=== PATIENT | female | born 1985 | race Hispanic/Latino ===

== ENCOUNTER 2018-06-10 14:57 | Emergency (ER) | payer SELFPAY ==
[~2018-06-10] VITALS: Ht 160 cm; Wt 58.2 kg
[~2018-06-10 14:57] MED LIST: AMOXICILLIN875 MG PO; MACRODANTIN100 MG OR; NO; NO HOME MEDS; PRENATABS OR
[2018-06-10 15:21] VITALS: BP 142/87
== END 2018-06-10 15:34 | disposition home or self-care (01) | DRG 301 ==
LOC: ED 14:57
PROC: 0HQKXZZ Repair Right Lower Leg Skin, External Approach (ICD-10-PCS; principal; 2018-06-10)
DX: I83.891 Varicose veins of right lower extremity with other complications (principal)

== ENCOUNTER 2019-06-22 08:56 | Emergency (ER) | payer SELFPAY ==
[~2019-06-22] VITALS: Ht 160 cm; Wt 59.0 kg
[2019-06-22 09:27] LABS: HEMOGLOBIN 11.6 g/dl (12.0-16.0); IMMATURE GRANULOCYTES 0.2 % (0.0-5.0); MEAN CELL VOLUME 81.6 fL CALC (80.0-100.0); MEAN CORPUSCULAR HGB CONC 33.1 g/L CALC (32.0-36.0); NEUT# 6.13 thou/uL (2.00-7.15); RED BLOOD COUNT 4.29 mill/uL (4.20-5.60); RED CELL DISTRI WIDTH 13.5 % (11.5-15.5)
[2019-06-22 09:44] LABS: ANION GAP 12 (6-22 (CALC)); BUN 9 mg/dL (7-17); BUN/CREATININE RATIO 29 (12-20 (CALC)); CARBON DIOXIDE 23 mmol/l (22-30); CHLORIDE 110 mmol/l (95-108); CREATININE 0.3 mg/dL (0.5-1.0); GFR > 60 ML/MIN (>=60 (CALC)); GFR FOR AFR.AMER. > 60 ML/MIN (>=60 (CALC)); POTASSIUM 3.1 mmol/l (3.5-5.1); SODIUM 142 mmol/l (137-146)
[2019-06-22] MEDS ORDERED: LEVOTHYROXIN50 MCG PO (10:23)
[2019-06-22] MEDS ORDERED: K-TAB20 MEQ PO (11:16)
[2019-06-22 11:39] VITALS: BP 101/65
== END 2019-06-22 11:39 | disposition home or self-care (01) | DRG 313 ==
LOC: ED 08:56
PROVIDERS: Family Medicine
DX: R07.9 Chest pain, unspecified (principal)

== ENCOUNTER 2020-01-11 | Observation (INO) | payer SELFPAY ==
[2020-01-11] VITALS (10 sets, daily range): BP systolic 103–135; BP diastolic 61–76
[~2020-01-11] MED LIST changes: +K-TAB20 MEQ PO; +LEVOTHYROXIN50 MCG PO
--- NOTE | 2020-01-11 04:30 | NUR ---
PT. WITH C/O ABD. PAIN STARTING YESTERDAY. ABD. DISTENDED BUT SOFT WITH + BOWEL SOUNDS. PT. STATES SHE HAD A NORMAL BM YESTERDAY.
--- NOTE | 2020-01-11 05:10 | NUR ---
IV PAIN MED GIVEN PER MD ORDER.
[2020-01-11] MEDS ORDERED: METHIMAZOLE10 MG PO (05:17)
[2020-01-11] MEDS ORDERED: AMOXICILLIN500 MG PO (05:18)
[2020-01-11 05:19] LABS: HEMATOCRIT 36.6 % (37.0-47.0); HEMOGLOBIN 11.8 g/dl (12.0-16.0); IMMATURE GRANULOCYTES 0.3 % (0.0-5.0); MEAN CELL VOLUME 80.3 fL CALC (80.0-100.0); MEAN CORPUSCULAR HGB 25.9 pG CALC (26.0-32.0); MEAN CORPUSCULAR HGB CONC 32.2 g/dL CAL (32.0-36.0); NEUT# 10.18 thou/uL (2.00-7.15); RED BLOOD COUNT 4.56 mill/uL (4.20-5.60); RED CELL DISTRI WIDTH 13.9 % (11.5-15.5)
[2020-01-11 05:20] LABS: URINE BILIRUBIN - DIPSTICK NEGATIVE (NEGATIVE); URINE BLOOD DIPSTICK TRACE-LYSED (NEGATIVE); URINE COLOR YELLOW; URINE GLUCOSE - DIPSTICK NEGATIVE (NEGATIVE); URINE KETONE NEGATIVE (NEGATIVE); URINE LEUK ESTERASE NEGATIVE (NEGATIVE); URINE NITRITE - DIPSTICK NEGATIVE (Negative); URINE PH 5.5 (4.5-8.0); URINE PROTEIN - DIPSTICK NEGATIVE (NEG-TRACE); URINE SPECIFIC GRAVITY >=1.030; URINE UROBILINOGEN - DIPSTICK 0.2 E.U./dL (0.2)
--- NOTE | 2020-01-11 05:30 | NUR ---
PT. STATES HER ABD. PAIN IS NOW DECREASED TO A 7 KATHIA SCALE OF 1-10.
[2020-01-11 05:35] LABS: ALBUMIN 4.3 g/dL (3.2-5.0); ALKALINE PHOSPHATASE 108 u/l (38-126); AMYLASE 37 u/l (30-110); ANION GAP 14 (6-22 (CALC)); BILIRUBIN, TOTAL 0.8 mg/dL (0.0-1.4); BUN 11 mg/dL (7-17); BUN/CREATININE RATIO 31 (12-20 (CALC)); CARBON DIOXIDE 22 mmol/l (22-30); CHLORIDE 104 mmol/l (95-108); CREATININE 0.4 mg/dL (0.5-1.0); GFR > 60 ML/MIN (>=60 (CALC)); GFR FOR AFR.AMER. > 60 ML/MIN (>=60 (CALC)); LIPASE 48 u/l (23-300); POTASSIUM 3.5 mmol/l (3.5-5.1); SGOT/AST 21 u/l (14-36); SODIUM 136 mmol/l (137-146); TOTAL PROTEIN 7.8 g/dL (6.3-8.2)
--- NOTE | 2020-01-11 05:42 | NUR ---
PT. C/O RETURNING ABD. PAIN MD AWARE.
--- NOTE | 2020-01-11 06:54 | NUR ---
PT. STATES HER ABD. PAIN IS NOW REDUCED TO A 4 ON A SCALE OF 1-10.
--- NOTE | 2020-01-11 06:59 | NUR ---
REPORT TO JAMES ZAPATA.
--- NOTE | 2020-01-11 07:09 | NUR ---
REPORT FROM BENNY SUN; PT RESTING ON STRETCHER WITH EYES CLOSED; EASILY AROUSABLE; PT DENIES ANY PAIN AT THIS TIME; MONITORING DEVICES IN PLACE; VSS; WILL CONTNIUE TO MONITOR
--- NOTE | 2020-01-11 08:05 | NUR ---
KATHE, RN AT BEDSIDE REPORT GIVEN; PT OUT OF ED IN STABLE CONDITION AT THIS TIME
--- NOTE | 2020-01-11 08:47 | NUR ---
REPORT CALLED TO BENNY LEGGETT
--- NOTE | 2020-01-11 11:43 | NUR ---
PATIENT ARRIVED TO FLOOR FRON OR VIA STRETCHER, PATIENT WAS ASSISTED TO RESTROOM, PATIENT VOIDED, PATIENT DROWSY NO C/O PAIN, NO S/S RESP DISTRESS PATIENT ON ROOM AIR, S/P LAP [place] 4 SITES ARE DRY, CLEAN INTACT, LAST BOWEL MOVEMENT 01/10/20, ORIENT PATIENT TO ROOM, STAFF, AND PLACE OF CARE, WILL CONTINUE TO MONITOR
--- NOTE | 2020-01-11 16:25 | NUR ---
PATIENT A/O X4, NO S/S RESP DISTRESS, PATIENT ON ROOM AIR, PATIENT PAIN LEVEL DECREASE TO 2/10 IN ABDOMEN AFTER PAIN MED GIVEN, PATIENT TO AMBULATE TO RESTROOM WITHOUT COMPLICATION, WILL CONTINUE TO MONITOR PATIENT
--- NOTE | 2020-01-11 20:33 | NUR ---
PT RESTING IN BED, NO SIGNS OF DISTRESS NOTED, RESP EVEN AND UNLABORED. PT ALERT AND ORIENTED X3, SWEDISH SPEAKING ONLY,STUDENT LOAN COUNSELOR SPEAKS SWEDISH. DISCUSSED POC, SCD'S IN PLACE. ABD INCISIONS X4 WITH DERMABOND CDI. ASSESSMENT COMPLETED, PT MEDICATED FOR PAIN, CALL LIGHT IN REACH,CONTINUE TO MONITOR.
--- NOTE | 2020-01-11 22:12 | NUR ---
PT RESTING IN BED, ASSISTED PT TO BATHROOM, RETURNED AND MEDICATED WITH TORADOL, PAIN 04/04. CALL LIGHT IN REACH,CONTINUE TO MONITOR.
--- NOTE | 2020-01-12 | NUR ---
PT RESTING IN BED, NO SIGNS OF DISTRESS NOTED, RESP EVEN AND UNLABORED. PT VOICES NO NEEDS OR COMPLAINTS AT THIS TIME, CALL LIGHT IN REACH,CONTINUE TO MONITOR.
--- NOTE | 2020-01-12 03:21 | NUR ---
ASSISTED PT TO BATHROOM, PT RETURNED TO BED, MEDICATED WITH TORADOL. CALL LIGHT IN REACH,CONTINUE TO MONITOR.
[2020-01-12 03:22] VITALS: BP 93/56
--- NOTE | 2020-01-12 06:00 | NUR ---
PT MEDICATED FOR PAIN 04/04, CALL LIGHT IN REACH,CONTINUE TO MONITOR.
[2020-01-12 07:55] VITALS: BP 98/56
[2020-01-12 10:56] VITALS: BP 91/52
[2020-01-12] MEDS ORDERED: PERCOCET 5/325M1 TAB PO (11:38)
--- NOTE | 2020-01-12 14:30 | NUR ---
IV site discontinued, cath intact. No edema , no redness, voices no discomfort.
--- NOTE | 2020-01-12 14:30 | NUR ---
PATIENT A/OX4, NO C/O PAIN, NO S/S RESP DISTRESS, PATIENT ON ROOM AIR, PATIENT DISCHARGED TO HOME,FRENCH SPEAKING NURSE ASSISTED ASSIGN NURSE WITH EDUCATING PATIENT ABOUT DISCHARGE INSTRUCTIONS, PATIENT UNDERSTOOD TEACHING, REMOVE IV, PATIENT AMBULATED OFF FLOOR ACCOMPANIED BY ASSIGN NURSE
== END 2020-01-12 14:30 | disposition home or self-care (01) | DRG 419 ==
PROVIDERS: ADMIT Surgery
PROC: 0FT44ZZ Resection of Gallbladder, Percutaneous Endoscopic Approach (ICD-10-PCS; principal; 2020-01-11)
DX: K80.00 Calculus of gallbladder with acute cholecystitis without obstruction (principal); K42.9 Umbilical hernia without obstruction or gangrene
CPT/HCPCS: J0131; J1100; Q9967

== ENCOUNTER 2020-12-03 12:13 | Emergency (ER) | payer SELFPAY ==
[~2020-12-03] VITALS: Ht 160 cm; Wt 62.0 kg
[~2020-12-03 12:13] MED LIST changes: +AMOXICILLIN500 MG PO; +METHIMAZOLE10 MG PO; +PERCOCET 5/325M1 TAB PO
[2020-12-03 13:11] LABS: HEMATOCRIT 34.6 % (37.0-47.0); HEMOGLOBIN 10.9 g/dl (12.0-16.0); IMMATURE GRANULOCYTES 0.3 % (0.0-5.0); MEAN CELL VOLUME 80.3 fL CALC (80.0-100.0); MEAN CORPUSCULAR HGB 25.3 pG CALC (26.0-32.0); MEAN CORPUSCULAR HGB CONC 31.5 g/dL CAL (32.0-36.0); NEUT# 6.62 thou/uL (2.00-7.15); RED BLOOD COUNT 4.31 mill/uL (4.20-5.60); RED CELL DISTRI WIDTH 15.5 % (11.5-15.5)
[2020-12-03 13:27] LABS: ALBUMIN 4.3 g/dL (3.2-5.0); ALKALINE PHOSPHATASE 98 u/l (38-126); ANION GAP 13 (6-22 (CALC)); BILIRUBIN, TOTAL 0.6 mg/dL (0.0-1.4); BUN 11 mg/dL (7-17); BUN/CREATININE RATIO 19 (12-20 (CALC)); CARBON DIOXIDE 22 mmol/l (22-30); CHLORIDE 107 mmol/l (95-108); CREATININE 0.6 mg/dL (0.5-1.0); GFR > 60 ML/MIN (>=60 (CALC)); GFR FOR AFR.AMER. > 60 ML/MIN (>=60 (CALC)); LIPASE 88 u/l (23-300); POTASSIUM 3.5 mmol/l (3.5-5.1); SGOT/AST 23 u/l (14-36); SODIUM 139 mmol/l (137-146); TOTAL PROTEIN 7.9 g/dL (6.3-8.2)
[2020-12-03 14:45] LABS: URINE BILIRUBIN - DIPSTICK NEGATIVE (NEGATIVE); URINE BLOOD DIPSTICK TRACE-INTACT (NEGATIVE); URINE COLOR YELLOW; URINE GLUCOSE - DIPSTICK NEGATIVE (NEGATIVE); URINE KETONE NEGATIVE (NEGATIVE); URINE LEUK ESTERASE NEGATIVE (NEGATIVE); URINE NITRITE - DIPSTICK NEGATIVE (Negative); URINE PH 5.5 (4.5-8.0); URINE PROTEIN - DIPSTICK NEGATIVE (NEG-TRACE); URINE SPECIFIC GRAVITY >=1.030; URINE UROBILINOGEN - DIPSTICK 0.2 E.U./dL (0.2)
[2020-12-03] MEDS ORDERED: CYCLOBENZAPR5 MG PO (14:51)
[2020-12-03 15:30] VITALS: BP 112/67
== END 2020-12-03 16:19 | disposition home or self-care (01) | DRG 552 ==
LOC: ED 12:13
PROVIDERS: Family Medicine
DX: M54.5 Low back pain (principal); R10.30 Lower abdominal pain, unspecified

== ENCOUNTER 2022-12-19 18:14 | Emergency (ER) | payer MEDICAID ==
[2022-12-19] VITALS (7 sets, daily range): BP systolic 97–137; BP diastolic 56–92
[~2022-12-19] VITALS: Ht 160 cm; Wt 73.2 kg
[~2022-12-19 18:14] MED LIST changes: +CYCLOBENZAPR5 MG PO
[2022-12-19] MEDS ORDERED: TAM75CAP PO (20:21)
[2022-12-19] MEDS ORDERED: MEDDOSEPAK PO (20:21)
== END 2022-12-19 20:49 | disposition home or self-care (01) ==
LOC: ED 18:14
DX: J10.1 Influenza due to other identified influenza virus with other respiratory manifestations (principal); Z20.822 Contact with and (suspected) exposure to COVID-19

== ENCOUNTER 2024-08-05 12:22 | Emergency (ER) | payer OTHER ==
[~2024-08-05] VITALS: Ht 160 cm; Wt 81.0 kg
[2024-08-05] VITALS (7 sets, daily range): BP systolic 127–148; BP diastolic 70–80
[~2024-08-05 12:22] MED LIST changes: +MEDDOSEPAK PO; +TAM75CAP PO
[2024-08-05] MEDS ORDERED: ONDANSETRON HCl 4 MG/2 ML SDV IV STA (13:27)
[2024-08-05] MEDS ORDERED: KETOROLAC TROMETHAMINE 30 MG/ML SDV IV STA (13:27)
[2024-08-05] MEDS ORDERED: SODIUM CHLORIDE 0.9% 1,000 ML IV STA (13:27)
[2024-08-05 14:05] LABS: URINE BILIRUBIN - DIPSTICK Negative (NEGATIVE); URINE BLOOD DIPSTICK Negative (NEGATIVE); URINE GLUCOSE - DIPSTICK Negative (NEGATIVE); URINE KETONE Negative (NEGATIVE); URINE LEUK ESTERASE Negative (NEGATIVE); URINE NITRITE - DIPSTICK Negative (Negative); URINE PROTEIN - DIPSTICK Negative (NEG-TRACE); URINE SPECIFIC GRAVITY <=1.005; URINE UROBILINOGEN - DIPSTICK 0.2 E.U./dL (0.2)
[2024-08-05 14:05] LABS: BASO% 0.5 % (0-3); HEMATOCRIT 35.2 % (37.0-47.0); HEMOGLOBIN 11.3 g/dl (12.0-16.0); IMMATURE GRANULOCYTES 0.3 % (0.0-5.0); LYMPH% 21.3 % (15-41); MEAN CORPUSCULAR HGB 27.3 pG CALC (26.0-32.0); MEAN CORPUSCULAR HGB CONC 32.1 g/dL CAL (32.0-36.0); MONO% 4.7 % (2-13); NEUT# 8.17 thou/uL (2.00-7.15); NEUT% 71.2 % (42-76); RED BLOOD COUNT 4.14 mill/uL (4.20-5.60); RED CELL DISTRI WIDTH 14.4 % (11.5-15.5)
[2024-08-05 14:06] LABS: URINE COLOR Yellow
[2024-08-05 14:24] LABS: ALBUMIN 4.4 g/dL (3.2-5.0); ALKALINE PHOSPHATASE 82 u/l (38-126); ANION GAP 10 (6-22 (CALC)); BILIRUBIN, TOTAL 0.5 mg/dL (0.02-1.3); BUN 8 mg/dL (7-17); BUN/CREATININE RATIO 16 (12-20 (CALC)); CARBON DIOXIDE 24 mmol/l (22-30); CHLORIDE 111 mmol/l (95-108); CREATININE 0.5 mg/dL (0.5-1.0); ESTIMATED GFR 123 ML/MIN (>=90 (CALC)); LIPASE 89 u/l (23-300); POTASSIUM 3.4 mmol/l (3.5-5.1); SGOT/AST 27 u/l (14-36); SODIUM 140 mmol/l (137-146); TOTAL PROTEIN 7.8 g/dL (6.3-8.2)
[2024-08-05] MEDS ORDERED: NAPROXEN500 MG PO (15:50)
[2024-08-05] MEDS ORDERED: ORPHENADRINE CITRATE 30 MG/ML AMP IV ONE (15:50)
== END 2024-08-05 16:45 | disposition home or self-care (01) | DRG 395 ==
LOC: ED 12:22
PROVIDERS: Nurse Practitioner
DX: K40.90 Unilateral inguinal hernia, without obstruction or gangrene, not specified as recurrent (principal)
CPT/HCPCS: Q9967

== ENCOUNTER 2024-10-24 10:40 | Day surgery (SDC) | payer OTHER ==
[~2024-10-24] VITALS: Ht 154.9 cm; Wt 79.4 kg
[~2024-10-24 10:40] MED LIST changes: +CLARITIN10 M1 PO; +GABAPENTIN100 MG PO; +LYZA0.35 MG; +NAPROXEN500 MG PO
[2024-10-24] MEDS ORDERED: ceFAZolin Sodium 2 GM/VIAL SDV ONE (11:16)
[2024-10-24] MEDS ORDERED: SODIUM CHLORIDE 0.9% 100 ML IV ONE (11:16)
[2024-10-24] MEDS ORDERED: FAMOTIDINE 10MG/ML 2ML SDV IV ONE (11:16)
[2024-10-24] MEDS ORDERED: LACTATED RINGER'S 1,000 ML IV ONE (11:17)
[2024-10-24] MEDS ORDERED: MOTRIN400 MG/TAB PO (11:33)
[2024-10-24] MEDS ORDERED: STERILE WATER FOR IRRIGATION 1,000 ML BTL IR ONE (12:47)
[2024-10-24] MEDS ORDERED: SODIUM CHLORIDE 1,000 ML BTL IR ONE (12:47)
[2024-10-24] MEDS ORDERED: LIDOcaine HCl 1% (Local Anesth.) 20 ML VIAL ONE (12:47)
[2024-10-24] MEDS ORDERED: PERCOCET 5/325M1 TAB PO (14:14)
[2024-10-24 14:55] VITALS: BP 113/74
[2024-10-24] MEDS ORDERED: MORPHINE SULFATE 4 MG/ML VIAL IV ONE (15:28)
[2024-10-24] MEDS ORDERED: SUGAMMADEX SODIUM 200 MG/2 ML SDV IV ONE (15:28)
[2024-10-24] MEDS ORDERED: LIDOCAINE HCL 2% 2ML SDV IV ONE (15:28)
[2024-10-24] MEDS ORDERED: ONDANSETRON HCl 4 MG/2 ML SDV IV ONE (15:28)
[2024-10-24] MEDS ORDERED: SUCCINYLCHOLINE CHLORIDE 20 MG/ML 10ML VIAL IV ONE (15:28)
[2024-10-24] MEDS ORDERED: DEXAMETHASONE SODIUM PHOSPHATE PF 10 MG/ML SDV IV ONE (15:28)
[2024-10-24] MEDS ORDERED: ROCURONIUM BROMIDE 10 MG/ML 5ML VIAL IV ONE (15:28)
[2024-10-24] MEDS ORDERED: ACETAMINOPHEN 1,000 MG/100 ML VIAL IV ONE (15:28)
[2024-10-24] MEDS ORDERED: KETOROLAC TROMETHAMINE 30 MG/ML SDV IV ONE (15:28)
[2024-10-24] MEDS ORDERED: PROPOFOL 200 MG/20 ML VIAL IV ONE (15:28)
[2024-10-24] MEDS ORDERED: DiphenhydrAMINE HCL 50 MG/ML SDV IV ONE (15:28)
[2024-10-24] MEDS ORDERED: GLYCOPYRROLATE 0.2 MG/ML IV ONE (15:28)
[2024-10-25] MEDS ORDERED: PYRIDIUM200 MG PO (05:12)
[2024-10-25] MEDS ORDERED: MACROBID100 M1 PO (05:12)
== END 2024-10-24 15:20 | disposition home or self-care (01) | DRG 352 ==
LOC: ORM 10:40
PROVIDERS: ATTEND Surgery
PROC: 0YUA4JZ Supplement Bilateral Inguinal Region with Synthetic Substitute, Percutaneous Endoscopic Approach (ICD-10-PCS; principal; 2024-10-24)
DX: K40.20 Bilateral inguinal hernia, without obstruction or gangrene, not specified as recurrent (principal); M62.08 Separation of muscle (nontraumatic), other site
CPT/HCPCS: C1781; J0131; J0690; J1100; J1200; J1596; J2405

== ENCOUNTER 2024-10-24 23:53 | Emergency (ER) | payer OTHER ==
[~2024-10-24] VITALS: Ht 154.9 cm; Wt 92.0 kg
[~2024-10-24 23:53] MED LIST changes: +MOTRIN400 MG/TAB PO
[2024-10-25 01:00] VITALS: BP 167/91
[2024-10-25] MEDS ORDERED: PHENAZOPYRIDINE HCL 100 MG/TAB PO ONE (02:05)
[2024-10-25] MEDS ORDERED: NITROFURANTOIN 100 MG/CAP PO ONE (02:05)
[2024-10-25 02:24] LABS: URINE BILIRUBIN - DIPSTICK Negative (NEGATIVE); URINE BLOOD DIPSTICK Trace-lysed (NEGATIVE); URINE GLUCOSE - DIPSTICK Negative (NEGATIVE); URINE KETONE Negative (NEGATIVE); URINE LEUK ESTERASE Negative (NEGATIVE); URINE NITRITE - DIPSTICK Negative (Negative); URINE PROTEIN - DIPSTICK Negative (NEG-TRACE); URINE UROBILINOGEN - DIPSTICK 0.2 E.U./dL (0.2)
[2024-10-25 02:27] LABS: URINE COLOR Yellow
[2024-10-25] MEDS ORDERED: SODIUM CHLORIDE 0.9% 1,000 ML IV ONE (02:30)
[2024-10-25 03:19] LABS: BASO% 0.1 % (0-3); HEMATOCRIT 32.4 % (37.0-47.0); HEMOGLOBIN 10.6 g/dl (12.0-16.0); IMMATURE GRANULOCYTES 1.2 % (0.0-5.0); LYMPH% 4.6 % (15-41); MEAN CELL VOLUME 81.8 fL CALC (80.0-100.0); MEAN CORPUSCULAR HGB 26.8 pG CALC (26.0-32.0); MEAN CORPUSCULAR HGB CONC 32.7 g/dL CAL (32.0-36.0); MONO% 3.2 % (2-13); NEUT# 15.72 thou/uL (2.00-7.15); NEUT% 90.9 % (42-76); RED BLOOD COUNT 3.96 mill/uL (4.20-5.60); RED CELL DISTRI WIDTH 14.5 % (11.5-15.5)
[2024-10-25 03:31] LABS: ALBUMIN 4.4 g/dL (3.2-5.0); BILIRUBIN, TOTAL 1.1 mg/dL (0.02-1.3); CREATININE 0.4 mg/dL (0.5-1.0); POTASSIUM 3.9 mmol/l (3.5-5.1); TOTAL PROTEIN 7.6 g/dL (6.3-8.2)
[2024-10-25] MEDS ORDERED: MACROBID100 M1 PO (05:12)
[2024-10-25] MEDS ORDERED: PYRIDIUM200 MG PO (05:12)
== END 2024-10-25 05:30 | disposition home or self-care (01) | DRG 696 ==
LOC: ED 23:53
PROVIDERS: Family Medicine
DX: R30.0 Dysuria (principal); K91.873 Postprocedural seroma of a digestive system organ or structure following other procedure
CPT/HCPCS: Q9967